=== PATIENT | male | born 1955 | race Caucasian/White ===

== ENCOUNTER 2017-12-16 11:57 | Inpatient (IN) ==
--- NOTE | 2017-12-21 16:28 | Internal Med History&Physical ---
Date of Encounter: 12/21/17 Time of Encounter: 16:28 Assessment and Plan (1) Status post total hip replacement, right Current visit: Yes Status: Acute Patient appears relaxed and states that his pain has been well managed with current medications. Surgical incision continues to remain intact with a small amount of serous type drainage received. We will continue with twice a day dressing changes until drainage has reduced. Patient to be evaluated by physical therapy with recommendations pending. Patient states that he has been out of bed and bear weight without any difficulty. (2) CHF (congestive heart failure) Current visit: Yes Status: Chronic No acute issues. Lungs are clear throughout. Patient denies any chest discomforts or palpitations. Noted dependent edema to the hips and lower extremities. We will continue with HEMANT hose to lower legs and DVT prophylaxis. We will continue with current medications Qualifiers: Heart failure type: diastolic Heart failure chronicity: chronic Qualified Code(s): I50.32 - Chronic diastolic (congestive) heart failure (3) CKD (chronic kidney disease), stage III Current visit: Yes Status: Chronic No acute issues. Last creatinine was 1.1. We will continue with current medications and follow serial labs. (4) Diabetes mellitus Current visit: Yes Status: Chronic No acute issues. We will continue with fingersticks with sliding scale coverage and evaluate these were just current medication regimen. Qualifiers: Diabetes mellitus type: type 2 Diabetes mellitus snf insulin use: with snf use Diabetes mellitus complication status: with kidney complications Diabetes mellitus complication detail: with chronic kidney disease Chronic kidney disease stage: stage 3 (moderate) Qualified Code(s): E11.22 - Type 2 diabetes mellitus with diabetic chronic kidney disease; N18.3 - Chronic kidney disease, stage 3 (moderate); Z79.4 - assisted (current) use of insulin (5) Gout Current visit: Yes Status: Chronic No acute issues at this time. Patient denies any discomforts to his bilateral feet were he states his gout flareups usually occur. Last uric acid was 7.7 on 12/15. Qualifiers: Gout site: toe Gout etiology: unspecified cause Chronicity: unspecified Laterality: right Qualified Code(s): M10.9 - Gout, unspecified (6) Atrial fibrillation Current visit: Yes Status: Chronic No acute issues. Patient's heart rate remains irregular with controlled rate less than 100. We will continue with current medications Qualifiers: Atrial fibrillation type: chronic Qualified Code(s): I48.2 - Chronic atrial fibrillation Internal Medicine - H&P: HPI Chief complaint: right THR Admitted From: Intrahospital Transfer Plans for Post Hospital Care: Home History of present illness: Mr. Pendleton is a 62 year old male who had a total hip replacement on the right after experiencing a fall at home resulting in a right femoral fracture. Patient with history of congestive heart failure, A. fib status post ablation and status post pacemaker currently on Xarelto, CKD3, diabetes, gout, hypertension, depression and BPH Patient's recovery postoperatively was complicated with an episode of elevated fever and leukocytosis. He was evaluated by infectious disease with no obvious action source found. It was thought his leukocytosis was secondary to a flareup of gout which was treated with cortical steroids. Patient did have a drop in hemoglobin and received 2 units of packed RBCs postoperatively. Patient also had increased dependent edema to his hips, which has resulted in a serous type drainage from his surgical wound, requiring twice a day dressing changes at time of discharge. Patient states that he has been up out of bed and feels that he is now progressing well. Right hip surgical wound appears intact with no erythema or ecchymosis noted. Noted moderate nonpitting edema to bilateral hips. Bilateral lower legs currently have Shelton wraps in place. Patient denies any other discomforts. Denies any shortness of breath, productive cough or palpitations. Patient states that his pain has been well-controlled with current medication regimen. Denies any fever or chills. Past Med Surg Social Fam HX - Past Medical History Medical history: atrial fibrillation, CHF, coronary artery disease, diabetes, hypertension Additional medical history: Gout, Pacemaker Psychiatric history: depression - Past Surgical History Surgical History: cataract, pacemaker/AICD, other Additional surgical history: R KNEE SCOPE, Cardiac ablation, Multiple heart caths - Social History Smoking Status: Never smoker Smokeless Tobacco Status: No Alcohol use: none Drug use: none - Family History Father Living Status: Hx Family Cardiac Disorders: Yes Hx Family Cancer: Yes Hx Family Endocrine Disorder: Yes Sister Hx Family Cardiac Disorders: Yes Mother Living Status: Hx Family Cardiac Disorders: Yes (stroke) Internal Medicine - H&P: Meds Sertraline [Zoloft] 100 mg PO DAILY 04/02/16 [History] Cinnamon Bark [Cinnamon] 1,000 mg PO BID 09/10/17 [History] Melatonin 10 mg PO HS 09/10/17 [History] Rivaroxaban [Xarelto] 20 mg PO DAILY 09/10/17 [History] Tamsulosin [Flomax] 0.4 mg PO DAILY 09/10/17 [History] Polyethylene Glycol 3350 [MiraLAX] 17 gm PO DAILY 12/09/17 [History] SitaGLIPtin [Januvia] 100 mg PO DAILY 12/09/17 [History] Aspirin [Adult Aspirin Regimen] 81 mg PO DAILY 12/10/17 [History] C/Sourcherry/Celery/Grape Seed [Tart [place]ova Capsule] 1 cap PO DAILY 12/10/17 [ History] Insulin ASPART [Novolog Flexpen] 2 unit SQ TIDWM 12/10/17 [History] Insulin Glargine,Hum.rec.anlog [Toujeo Solostar] 15 units SQ HS 12/10/17 [ History] Multivitamin [One Daily Essential] 1 tab PO DAILY 12/10/17 [History] Omeprazole/Sodium Bicarbonate [Zegerid 20 mg Capsule] 1 cap PO Q48H PRN [History] Potassium Chloride [Klor-Con 10] 10 meq PO BID 12/10/17 [History] Doxycycline Hyclate 100 mg PO BID 10 Days #20 tablet 12/16/17 [Rx] Cyclobenzaprine [Flexeril] 5 mg PO TID PRN tablet 12/21/17 [Rx] Furosemide [Lasix] 40 mg PO BID #60 tablet 12/21/17 [Rx] Metoprolol XL (24 HR) Succ [Toprol Xl] 12.5 mg PO DAILY #0 tab.er.24h 12/21/17 [ Rx] predniSONE [PredniSONE] 10 mg PO TAPER #12 tablet 12/21/17 [Rx] 3 Allergy/AdvReac Type Severity Reaction Status Date / Time tetanus toxoid, adsorbed Allergy Hives Verified 12/10/17 10:11 NSAIDS (Non-Steroidal AdvReac See Verified 12/10/17 10:38 Anti-Inflamma Comments All Systems PM: A 10-system review of systems was performed and is negative for pertinent findings except as documented above in the HPI. - Constitutional Constitutional: as per HPI, no chills, no fever(s), no night sweats - EENT Eyes: no change in vision, no discharge, no pain, no photophobia Ears: no ear discharge, no ear pain, no tinnitus Nose, mouth and throat: no dysphagia, no nasal discharge, no neck pain, no sore throat - Cardiovascular Cardiovascular ROS IM: as per HPI, no chest pain, no diaphoresis, no dyspnea, no lightheadedness, no palpitations, no syncope - Respiratory Respiratory: as per HPI, no cough, no dyspnea, no wheezing, no excessive phlegm production - Gastrointestinal Gastrointestinal: no abdominal pain, no diarrhea, no hematemesis, no hematochezia, no melena, no nausea, no vomiting - Musculoskeletal Musculoskeletal ROS IM: as per HPI, no numbness, no tingling - Integumentary Integumentary IM: no rash, no unusual bruising - Neurological Neurological ROS: no confusion, no convulsions, no focal weakness, no numbness, no tingling, no tremor(s) - Hematologic/Lymphatic Hematologic/Lymphatic: no easy bruising - Constitutional Vitals: Temp Pulse Resp BP Pulse Ox 98.7 F 73 16 131/62 100 12/21/17 14:08 12/21/17 14:08 12/21/17 14:08 12/21/17 14:08 12/21/17 14:08 General appearance: Present: A&O X 3, pleasant - Head Head exam: Present: atraumatic, normocephalic - Eye Eye exam: Present: PERRL, conjuntiva pink, sclera anicteric Pupils: Present: PERRL - Neck Neck exam general surgery: Present: supple, trachea midline. Absent: lymphadenopathy - Respiratory Respiratory exam: Present: CTAB. Absent: accessory muscle use, rales, rhonchi, wheezes - Cardiovascular Cardiovascular exam: Present: irregular rhythm, RRR, +S1, +S2. Absent: diastolic murmur, gallop, rubs, systolic murmur Additional comments: Noted irregular rhythm with controlled rate less than 100 - GI/Abdominal GI/Abdominal exam: Present: normal bowel sounds, soft, no peritoneal signs. Absent: distended, tenderness - Extremities Exam Extremities exam: Present: warm, radial pulses palpable and symmetrical. Absent : calf tenderness, cyanotic, pedal edema Additional comments: Right hip with dressing showing minimal amount of serous type drainage collected. Surgical staple incisions remain intact - Neurological Exam Neurological exam: Present: CN II-XII intact, oriented X3, no focal deficits. Absent: pronater drift, facial droop, speech deficit - Skin Skin exam: Present: dry, intact - VTE Documentation of Mechanical Device: Graduated compression elastic hosiery
[2017-12-21] MEDS ORDERED: NON-FORMULARY MEDICATION 1 EACH EACH PO PRN (18:27)
[2017-12-21] MEDS ORDERED: *HR* Dextrose 50 % in Water (Syg) 50 ML SYRINGE IVP PRN (18:32)
[2017-12-21] MEDS ORDERED: Dextrose Gel 15 GM/37.5 ML TUBE PO PRN ×2 (18:32)
[2017-12-21] MEDS ORDERED: D5% in Water 1,000 ML IVC PRN (18:32)
[2017-12-21] MEDS ORDERED: Mag Hydrox/Al Hydrox/Simeth 30 ML UDC PO PRN (18:37)
[2017-12-21] MEDS: Furosemide 40 MG TABLET PO SCH (19:25)
[2017-12-21] MEDS: Colchicine 0.6 MG TABLET PO SCH (21:40)
[2017-12-21] MEDS: Melatonin 3 MG TABLET PO SCH (21:41)
[2017-12-21] MEDS: Doxycycline 100 MG CAPSULE PO SCH (21:41)
[2017-12-21] MEDS: predniSONE 10 MG TABLET PO SCH (21:45)
[2017-12-21] MEDS: Insulin LISPRO 300 UNITS/3 ML VIAL SQ SCH (21:46)
[2017-12-21] MEDS: (Cinnamon Bark [Cinnamon] 1,000 MG) PO SCH (22:23)
[2017-12-22 07:25] LABS: Hematocrit 26.8 % (37.5-50.1); Hemoglobin 8.8 g/dL (12.9-16.9); Mean Corpuscular HGB Conc 32.8 g/dL (31.6-35.5); Mean Corpuscular Hemoglobin 29.5 pg (28.0-33.3); Mean Corpuscular Volume 89.9 fL (83.0-100.0); Mean Platelet Volume 10.2 fL (9.4-12.4); Platelet Count 158 K/mcL (140-400); Red Blood Count 2.98 M/mcL (4.19-5.50); Red Cell Distribution Width 16.5 % (11.5-14.5)
[2017-12-22 07:43] LABS: Alanine Aminotransferase 28 Units/L (7-52); Albumin 3.1 g/dL (3.5-5.7); Albumin/Globulin Ratio 1.3 (1.1-2.2); Alkaline Phosphatase 119 Units/L (34-104); Aspartate Amino Transferase 21 Units/L (13-39); BUN/Creatinine Ratio 30 (6-26); Bilirubin,Total 1.3 mg/dL (0.3-1.0); Blood Urea Nitrogen 32 mg/dL (8-23); Calcium 8.9 mg/dL (8.6-10.3); Carbon Dioxide 26 mEq/L (23-29); Chloride 100 mEq/L (98-107); Globulin 2.3 g/dL (2.4-3.5); Glucose 218 mg/dL (70-105); Magnesium 1.9 mg/dL (1.6-2.6); Osmolality,Calculated 284 (280-300); Potassium 4.4 mEq/L (3.5-5.1); Sodium 130 mEq/L (136-145); Total Protein 5.4 g/dL (6.4-8.9); eGFR For African Americans > 60 (> 60); eGFR For Non-African Americans > 60 (> 60)
[2017-12-22] MEDS: Insulin LISPRO 300 UNITS/3 ML VIAL SQ SCH ×4 (08:37→22:18)
[2017-12-22] MEDS: Doxycycline 100 MG CAPSULE PO SCH ×2 (08:38→22:18)
[2017-12-22] MEDS: Acetaminophen 325 MG TABLET PO PRN (08:39)
[2017-12-22] MEDS: Aspirin Enteric Coated 81 MG Tablet PO SCH (08:41)
[2017-12-22] MEDS: *HR* SitaGLIPtin 100 MG TABLET PO SCH (08:41)
[2017-12-22] MEDS: predniSONE 10 MG TABLET PO SCH (08:41)
[2017-12-22] MEDS: Furosemide 40 MG TABLET PO SCH ×2 (08:42→18:07)
[2017-12-22] MEDS: *HR* Rivaroxaban 10 MG TABLET PO SCH (08:42)
[2017-12-22] MEDS: (Cinnamon Bark [Cinnamon] 1,000 MG) PO SCH (08:43)
[2017-12-22] MEDS: Metoprolol XL (24 HR) Succ 25 MG TAB.ER.24H PO SCH (08:43)
[2017-12-22] MEDS: Colchicine 0.6 MG TABLET PO SCH ×2 (08:44→22:15)
[2017-12-22] MEDS: Multivit/Ca/Min/Fe/FA 1 TAB TABLET PO SCH (08:44)
[2017-12-22] MEDS ORDERED: Metoprolol XL (24 HR) Succ 25 MG TAB.ER.24H PO SCH (09:00)
[2017-12-22] MEDS ORDERED: predniSONE 10 MG TABLET PO SCH (09:00)
--- NOTE | 2017-12-22 13:01 | Internal Med Progress Note ---
Date of Encounter: 12/22/17 Time of Encounter: 12:59 - Assessment and plan (1) Status post total hip replacement, right Current Visit: Yes Status: Acute Assessment and plan: Right hip surgical site continues to have moderate amount of serous type drainage been received, requiring dressing changes twice a day. Surgical staple line remains intact with no erythema or signs of infection. Patient does have moderate amount of dependent nonpitting edema to his bilateral hips and legs. History of CHF. We will continue to mobilize patient. We will continue with HEMANT hose. Patient's pain has been fairly well managed but today after dissipating and physical therapy he did require additional medication. We will increase Flexeril to 10 mg 3 times a day and will start on tramadol 100 mg every 6 hours when necessary. Otherwise patient is progressing well with physical therapy and denies any issues (2) CHF (congestive heart failure) Current Visit: Yes Status: Chronic Assessment and plan: No acute issues. Patient does continue to have moderate amount of dependent nonpitting edema noted. We will continue with DVT prophylaxis, which will include HEMANT hose. We will continue to mobilize patient. We will continue on current home medications. Patient denies any chest discomfort or palpitations Qualifiers: Heart failure type: diastolic Heart failure chronicity: chronic Qualified Code(s): I50.32 - Chronic diastolic (congestive) heart failure (3) CKD (chronic kidney disease), stage III Current Visit: Yes Status: Chronic Assessment and plan: No acute issues. Current creatinine is 1.05. Patient does continue to have some fluid retainment, which should resolve after mobilization. (4) Diabetes mellitus Current Visit: Yes Status: Chronic Assessment and plan: No acute issues. Glucose has been well controlled with current medications. Will continue on SSI and current meds. Qualifiers: Diabetes mellitus type: type 2 Diabetes mellitus mcc insulin use: with mcc use Diabetes mellitus complication status: with kidney complications Diabetes mellitus complication detail: with chronic kidney disease Chronic kidney disease stage: stage 3 (moderate) Qualified Code(s): E11.22 - Type 2 diabetes mellitus with diabetic chronic kidney disease; N18.3 - Chronic kidney disease, stage 3 (moderate); Z79.4 - correction (current) use of insulin (5) Gout Current Visit: Yes Status: Chronic Assessment and plan: Patient continues to c/o of pain to his bilateral feet. Patient started on cochicine seen. We will continue to monitor. Qualifiers: Gout site: toe Gout etiology: unspecified cause Chronicity: unspecified Laterality: right Qualified Code(s): M10.9 - Gout, unspecified (6) Atrial fibrillation Current Visit: Yes Status: Chronic Assessment and plan: No acute issues. HR remains controlled <100. Continues on home meds. Qualifiers: Atrial fibrillation type: chronic Qualified Code(s): I48.2 - Chronic atrial fibrillation - Time Spent With Patient less than 15 minutes - Subjective Interval history: Patient appears relaxed and had complaints of moderate pain to right hip surgical site. Patient had stated his pain and been well-controlled with current medications but today after participating in physical therapy patient had requested additional medication. Patient denies any shortness of breath. Right hip surgical incision continues to have moderate amount of serous type drainage with nursing reporting that they have had to change his dressing at least twice a day. - Constitutional Vitals: Temp Pulse Resp BP Pulse Ox 97.0 F L 69 14 108/55 100 12/22/17 11:00 12/22/17 11:00 12/22/17 11:00 12/22/17 11:00 12/22/17 11:00 General appearance: Present: A&O X 3, pleasant - Head Head exam: Present: atraumatic, normocephalic - Eye Eye exam: Present: PERRL, conjuntiva pink, sclera anicteric Pupils: Present: PERRL - Neck Neck exam general surgery: Present: supple, trachea midline. Absent: lymphadenopathy - Respiratory Respiratory exam: Present: CTAB. Absent: accessory muscle use, rales, rhonchi, wheezes Additional comments: Lungs are clear throughout with diminished bases. Respiratory effort appears relaxed - Cardiovascular Cardiovascular exam: Present: irregular rhythm, RRR, +S1, +S2. Absent: diastolic murmur, gallop, rubs, systolic murmur Additional comments: Heart rate is irregular but remains less than 100 or ventricular rate - GI/Abdominal GI/Abdominal exam: Present: normal bowel sounds, soft, no peritoneal signs. Absent: distended, tenderness - Extremities Exam Extremities exam: Present: pedal edema, warm, radial pulses palpable and symmetrical. Absent: calf tenderness, cyanotic Additional comments: Patient has dependent nonpitting edema to his bilateral hips and to lower legs/ feet. Right hip surgical staple line continues to have a moderate amount of serous type drainage received, but remains intact. No erythema noted. No ecchymosis. No complaints tenderness. - Neurological Exam Neurological exam: Present: CN II-XII intact, oriented X3, no focal deficits. Absent: pronater drift, facial droop, speech deficit - Skin Skin exam: Present: dry, intact Internal Medicine: Result - Labs CBC & Chem 7: 12/22/17 07:12 12/22/17 07:12 Labs: Short CBC 12/22/17 Range/Units 07:12 WBC 12.0 H (4.3-11.1) K/mcL Hgb 8.8 L (12.9-16.9) g/dL Hct 26.8 L (37.5-50.1) % Plt Count 158 (140-400) K/mcL BMP 12/22/17 07:12 Sodium 130 L Potassium 4.4 Chloride 100 Carbon Dioxide 26 BUN 32 H Creatinine 1.05 Glucose 218 H Calcium 8.9 Liver Function 12/22/17 Range/Units 07:12 Total Bilirubin 1.3 H (0.3-1.0) mg/dL AST 21 (13-39) Units/L ALT 28 (7-52) Units/L Alkaline Phosphatase 119 H (34-104) Units/L Albumin 3.1 L (3.5-5.7) g/dL - VTE Documentation of Mechanical Device: Graduated compression elastic hosiery Consult Discharge Plan - Plan Referrals: Rosanna Pfeiffer, PAC [Physician Designer Writer] - 12/22/17 9:30 am (Following appt 12/30/2017 at 0900.) Mat Castillo MD [Partnered Physician] - 01/11/18 4:30 pm NONE,PCP [Non-Partnered Physician] -
[2017-12-22] MEDS ORDERED: Insulin LISPRO 300 UNITS/3 ML VIAL SQ SCH (18:35)
[2017-12-22] MEDS: traMADol 50 MG TABLET PO PRN (22:17)
[2017-12-22] MEDS: Melatonin 3 MG TABLET PO SCH (22:17)
[2017-12-23] MEDS: (Cinnamon Bark [Cinnamon] 1,000 MG) PO SCH ×3 (02:23→23:12)
[2017-12-23] MEDS: Aspirin Enteric Coated 81 MG Tablet PO SCH (08:12)
[2017-12-23] MEDS: predniSONE 10 MG TABLET PO SCH (08:12)
[2017-12-23] MEDS: traMADol 50 MG TABLET PO PRN ×3 (08:12→23:10)
[2017-12-23] MEDS: *HR* Rivaroxaban 10 MG TABLET PO SCH (08:13)
[2017-12-23] MEDS: Multivit/Ca/Min/Fe/FA 1 TAB TABLET PO SCH (08:13)
[2017-12-23] MEDS: Colchicine 0.6 MG TABLET PO SCH ×2 (08:13→23:11)
[2017-12-23] MEDS: *HR* SitaGLIPtin 100 MG TABLET PO SCH (08:13)
[2017-12-23] MEDS: Metoprolol XL (24 HR) Succ 25 MG TAB.ER.24H PO SCH (08:13)
[2017-12-23] MEDS: Doxycycline 100 MG CAPSULE PO SCH ×2 (08:13→23:09)
[2017-12-23] MEDS: Furosemide 40 MG TABLET PO SCH ×2 (08:14→15:34)
[2017-12-23] MEDS: Insulin LISPRO 300 UNITS/3 ML VIAL SQ SCH ×4 (08:14→21:45)
--- NOTE | 2017-12-23 10:29 | Event Note ---
Date of Encounter: 12/23/17 Time of Encounter: 10:26 Patient is currently off unit doing a follow-up with orthopedic surgeon. No events related from nursing for overnight.
[2017-12-23] MEDS ORDERED: *HR* OxyCODONE Immed Rel 5 MG TABLET PO PRN (17:57)
--- NOTE | 2017-12-23 18:05 | Internal Med Progress Note ---
Date of Encounter: 12/23/17 Time of Encounter: 18:02 - Assessment and plan (1) Status post total hip replacement, right Current Visit: Yes Status: Acute Assessment and plan: He is doing well, participating in therapies, pain is noted, above. See comments above regarding addition of oxycodone. (2) CHF (congestive heart failure) Current Visit: Yes Status: Chronic Assessment and plan: We will increase Lasix as above. Do not think that this is heart failure but could be mild symptoms. Will continue to follow. Will need to be watching renal function, as well. Qualifiers: Heart failure type: diastolic Heart failure chronicity: chronic Qualified Code(s): I50.32 - Chronic diastolic (congestive) heart failure (3) CKD (chronic kidney disease), stage III Current Visit: Yes Status: Chronic Assessment and plan: Current function is borderline and okay but will need to watch, especially with increasing diuretic. (4) Diabetes mellitus Current Visit: Yes Status: Chronic Assessment and plan: Adequately controlled. Will continue current regimen and follow on sliding scale, etc. Qualifiers: Diabetes mellitus type: type 2 Diabetes mellitus group home insulin use: with group home use Diabetes mellitus complication status: with kidney complications Diabetes mellitus complication detail: with chronic kidney disease Chronic kidney disease stage: stage 3 (moderate) Qualified Code(s): E11.22 - Type 2 diabetes mellitus with diabetic chronic kidney disease; N18.3 - Chronic kidney disease, stage 3 (moderate); Z79.4 - director of pupil personnel program (current) use of insulin (5) Gout Current Visit: Yes Status: Chronic Assessment and plan: Feet are not hurting much at all. He is still having 2-3 loose bowel movements per day, on cultures seen. Overall, this seems better. Will start allopurinol at a low dose. Qualifiers: Gout site: toe Gout etiology: unspecified cause Chronicity: unspecified Laterality: right Qualified Code(s): M10.9 - Gout, unspecified (6) Acute blood loss as cause of postoperative anemia Current Visit: No Status: Acute Assessment and plan: Tolerated, thus far. May be contributing slightly to edema. Will follow. Certainly not at a level that I would transfuse, thus far. (7) Atrial fibrillation Current Visit: Yes Status: Chronic Assessment and plan: Clinically stable. We will continue home regimen and follow. Qualifiers: Atrial fibrillation type: chronic Qualified Code(s): I48.2 - Chronic atrial fibrillation - Subjective Interval history: Patient saw orthopedics in follow-up, this morning. They were concerned about his edema. He asks about increasing his Lasix. We will comply. The patient states that his pain is not well-controlled, with occasional pain necessary that is not responsive to Ultram. I advised that he try to use the Ultram if possible. If this is not adequately controlled with Ultram, he is to use oxycodone immediate release. Oxycodone will be ordered for severe pain, only. Patient has no complaint of chest discomfort, dyspnea, orthopnea, palpitations, nausea or vomiting, constipation or diarrhea, other changes in bowel habits, difficulty with urination, rash or itching, or other new complaints, except as mentioned above. Review of systems is otherwise negative. - Constitutional Vitals: Temp Pulse Resp BP Pulse Ox 97.6 F 70 16 123/74 100 12/23/17 07:00 12/23/17 07:00 12/23/17 07:00 12/23/17 07:00 12/23/17 07:00 General appearance: Present: A&O X 3, pleasant Exam: Examination: (Except as mentioned above): General: In no apparent distress. Alert and oriented 3. Nondiaphoretic. Head: Atraumatic and normocephalic. Respiratory: No use of accessory muscles. Lungs are clear throughout. Normal airflow. Cardiovascular: Regular rate and rhythm without murmur appreciated. Abdomen: Bowel sounds are normal. No hepatosplenomegaly mass or tenderness appreciated. Obese and therefore difficult to palpate deeply. Extremities: No cyanosis clubbing, or calf tenderness. He does have grade 2-3 edema which is worse in both lower extremities. Skin: Warm and non-diaphoretic with no new lesions noted. Internal Medicine: Result - Labs CBC & Chem 7: 12/22/17 07:12 12/22/17 07:12 - VTE Documentation of Mechanical Device: Graduated compression elastic hosiery Consult Discharge Plan - Plan Referrals: Rosanna Pfeiffer PAC [Physician Division Road Supervisor] - 12/22/17 9:30 am (Following appt 12/30/2017 at 0900.) Mat Castillo MD [Partnered Physician] - 08/01/18 4:30 pm NONE,PCP [Non-Partnered Physician] -
[2017-12-23] MEDS ORDERED: *HR* OxyCODONE/APAP 5/325 TABLET PO PRN (18:16)
[2017-12-23] MEDS: Melatonin 3 MG TABLET PO SCH (23:11)
[2017-12-24] MEDS: Insulin LISPRO 300 UNITS/3 ML VIAL SQ SCH ×4 (08:41→21:22)
[2017-12-24] MEDS: Doxycycline 100 MG CAPSULE PO SCH ×2 (08:51→21:34)
[2017-12-24] MEDS: predniSONE 10 MG TABLET PO SCH (08:51)
[2017-12-24] MEDS: Aspirin Enteric Coated 81 MG Tablet PO SCH (08:51)
[2017-12-24] MEDS: Metoprolol XL (24 HR) Succ 25 MG TAB.ER.24H PO SCH (08:51)
[2017-12-24] MEDS: Furosemide 40 MG TABLET PO SCH (08:51)
[2017-12-24] MEDS: *HR* Rivaroxaban 10 MG TABLET PO SCH (08:51)
[2017-12-24] MEDS: Colchicine 0.6 MG TABLET PO SCH (08:52)
[2017-12-24] MEDS: Multivit/Ca/Min/Fe/FA 1 TAB TABLET PO SCH (08:52)
[2017-12-24] MEDS: *HR* SitaGLIPtin 100 MG TABLET PO SCH (08:52)
[2017-12-24] MEDS: traMADol 50 MG TABLET PO PRN ×3 (08:55→21:34)
[2017-12-24] MEDS: (Cinnamon Bark [Cinnamon] 1,000 MG) PO SCH ×2 (08:57→21:55)
[2017-12-24 14:16] LABS: Hematocrit 28.3 % (37.5-50.1); Hemoglobin 9.3 g/dL (12.9-16.9); Mean Corpuscular HGB Conc 32.9 g/dL (31.6-35.5); Mean Corpuscular Hemoglobin 29.8 pg (28.0-33.3); Mean Corpuscular Volume 90.7 fL (83.0-100.0); Mean Platelet Volume 9.4 fL (9.4-12.4); Platelet Count 165 K/mcL (140-400); Red Blood Count 3.12 M/mcL (4.19-5.50); Red Cell Distribution Width 16.7 % (11.5-14.5)
[2017-12-24 14:33] LABS: BUN/Creatinine Ratio 24 (6-26); Blood Urea Nitrogen 26 mg/dL (8-23); Carbon Dioxide 28 mEq/L (23-29); Chloride 97 mEq/L (98-107); Glucose 187 mg/dL (70-105); Osmolality,Calculated 284 (280-300); Potassium 4.4 mEq/L (3.5-5.1); Sodium 132 mEq/L (136-145); eGFR For African Americans > 60 (> 60); eGFR For Non-African Americans > 60 (> 60)
--- NOTE | 2017-12-24 16:07 | Internal Med Progress Note ---
Date of Encounter: 12/24/17 Time of Encounter: 16:04 - Assessment and plan (1) Femoral neck fracture Current Visit: No Status: Acute Assessment and plan: Patient is status post total hip replacement on the right. He is doing well, continues to participate in therapy Qualifiers: Encounter type: subsequent encounter Fracture type: closed Laterality: right Fracture healing: with routine healing Qualified Code(s): S72.001D - Fracture of unspecified part of neck of right femur, subsequent encounter for closed fracture with routine healing (2) CHF (congestive heart failure) Current Visit: Yes Status: Chronic Assessment and plan: Patient appears to have chronic congestive heart failure, and appears to be mildly exacerbated given that he stopped his Lasix. He received 40 mg of Lasix yesterday, which have improved his sodium from 130 to 132. His BUN/creatinine continues to be stable. He is to receive Lasix 80 mg today. He was noted to have +2 pitting edema bilateral lower extremity Patient is chronically on torsemide 60 mg twice a day according to him, but I was not able to find this medication on his list. Qualifiers: Heart failure type: diastolic Heart failure chronicity: chronic Qualified Code(s): I50.32 - Chronic diastolic (congestive) heart failure (3) CKD (chronic kidney disease), stage III Current Visit: Yes Status: Chronic Assessment and plan: Chronic head stage III, may have had a touch of acute decline in the BUN but Currently appears to be urinating well. We will continue with the Lasix and monitor tomorrow Anticipated that this will be okay, given that the patient appears to be fluid overloaded at this time (4) Diabetes mellitus Current Visit: Yes Status: Chronic Assessment and plan: Adequately controlled, continue with the current management and follow on a sliding scale Qualifiers: Diabetes mellitus type: type 2 Diabetes mellitus senior living insulin use: with regional clinical director use Diabetes mellitus complication status: with kidney complications Diabetes mellitus complication detail: with chronic kidney disease Chronic kidney disease stage: stage 3 (moderate) Qualified Code(s): E11.22 - Type 2 diabetes mellitus with diabetic chronic kidney disease; N18.3 - Chronic kidney disease, stage 3 (moderate); Z79.4 - vascular tech (current) use of insulin (5) Leukocytosis Current Visit: No Status: Acute Assessment and plan: On repeat today, patient appears to be elevated at 15 -Patient is afebrile, and hemodynamically stable; no sign of infections -Patient was started on prednisone yesterday, and may be suffering from a reactive leukocytosis as well as in the setting of acute arthritic flare up -We will monitor another CBC, by tomorrow Qualifiers: Leukocytosis type: leukemoid reaction Qualified Code(s): D72.823 - Leukemoid reaction (6) Gout Current Visit: Yes Status: Chronic Assessment and plan: -Patient currently on a 10 mg prednisone 3 days; he will be switched to 5 mg prednisone for 5 days -Patient was started on colchicine yesterday, but given that he is controlled we will hold colchicine given his kidney function -Patient may possibly start on allopurinol in the next couple of days Qualifiers: Gout site: toe Gout etiology: unspecified cause Chronicity: unspecified Laterality: right Qualified Code(s): M10.9 - Gout, unspecified - Time Spent With Patient 25 - 35 minutes - Subjective Interval history: Patient reporting that he has left lower extremity gout attack. Has improved since yesterday. Patient reported that he used to be on 60 mg torsemide in the past, and he was told to stop this medication prior to his hip surgery - Constitutional Vitals: Temp Pulse Resp BP Pulse Ox 98.0 F 87 16 133/64 98 12/24/17 07:49 12/24/17 07:49 12/23/17 21:00 12/24/17 07:49 12/24/17 07:49 General appearance: Present: A&O X 3, pleasant - Head Head exam: Present: atraumatic, normocephalic - Eye Eye exam: Present: PERRL, conjuntiva pink, sclera anicteric Pupils: Present: PERRL - Neck Neck exam general surgery: Present: supple, trachea midline. Absent: lymphadenopathy - Respiratory Respiratory exam: Present: CTAB. Absent: accessory muscle use, rales, rhonchi, wheezes - Cardiovascular Cardiovascular exam: Present: +S1, +S2, systolic murmur. Absent: diastolic murmur, gallop, rubs - GI/Abdominal GI/Abdominal exam: Present: normal bowel sounds, soft, no peritoneal signs. Absent: distended, tenderness - Extremities Exam Extremities exam: Present: joint swelling, pedal edema, warm, radial pulses palpable and symmetrical. Absent: calf tenderness, cyanotic Additional comments: Left lateral MTP joint redness/erythema as well as tenderness to the touch consistent with gout flare - Neurological Exam Neurological exam: Present: CN II-XII intact, oriented X3, no focal deficits. Absent: pronater drift, facial droop, speech deficit - Skin Skin exam: Present: dry, intact Internal Medicine: Result - Labs CBC & Chem 7: 12/24/17 14:05 12/24/17 14:05 Labs: Short CBC 12/24/17 Range/Units 14:05 WBC 15.7 H (4.3-11.1) K/mcL Hgb 9.3 L (12.9-16.9) g/dL Hct 28.3 L (37.5-50.1) % Plt Count 165 (140-400) K/mcL BMP 12/24/17 14:05 Sodium 132 L Potassium 4.4 Chloride 97 L Carbon Dioxide 28 BUN 26 H Creatinine 1.10 Glucose 187 H Calcium 9.0 - VTE Documentation of Mechanical Device: Graduated compression elastic hosiery Consult Discharge Plan - Plan Referrals: Rosanna Pfeiffer, PAC [Physician Mapping Analyst] - 12/22/17 9:30 am (Following appt 12/30/2017 at 0900.) Mat Castillo MD [Partnered Physician] - 01/11/18 4:30 pm NONE,PCP [Non-Partnered Physician] -
[2017-12-24] MEDS: Melatonin 3 MG TABLET PO SCH (21:34)
[2017-12-25 05:25] LABS: Hematocrit 27.2 % (37.5-50.1); Hemoglobin 8.8 g/dL (12.9-16.9); Mean Corpuscular HGB Conc 32.4 g/dL (31.6-35.5); Mean Corpuscular Hemoglobin 29.5 pg (28.0-33.3); Mean Corpuscular Volume 91.3 fL (83.0-100.0); Mean Platelet Volume 9.8 fL (9.4-12.4); Platelet Count 164 K/mcL (140-400); Red Blood Count 2.98 M/mcL (4.19-5.50); Red Cell Distribution Width 16.9 % (11.5-14.5)
[2017-12-25 05:46] LABS: BUN/Creatinine Ratio 23 (6-26); Blood Urea Nitrogen 25 mg/dL (8-23); Calcium 8.9 mg/dL (8.6-10.3); Carbon Dioxide 29 mEq/L (23-29); Chloride 99 mEq/L (98-107); Glucose 123 mg/dL (70-105); Osmolality,Calculated 286 (280-300); Potassium 3.8 mEq/L (3.5-5.1); Sodium 135 mEq/L (136-145); eGFR For African Americans > 60 (> 60); eGFR For Non-African Americans > 60 (> 60)
[2017-12-25] MEDS: Insulin LISPRO 300 UNITS/3 ML VIAL SQ SCH ×4 (08:03→20:39)
[2017-12-25] MEDS: Doxycycline 100 MG CAPSULE PO SCH ×2 (08:09→20:36)
[2017-12-25] MEDS: *HR* Rivaroxaban 10 MG TABLET PO SCH (08:09)
[2017-12-25] MEDS: Multivit/Ca/Min/Fe/FA 1 TAB TABLET PO SCH (08:09)
[2017-12-25] MEDS: Aspirin Enteric Coated 81 MG Tablet PO SCH (08:09)
[2017-12-25] MEDS: *HR* SitaGLIPtin 100 MG TABLET PO SCH (08:10)
[2017-12-25] MEDS: Furosemide 40 MG TABLET PO SCH (08:10)
[2017-12-25] MEDS: (Cinnamon Bark [Cinnamon] 1,000 MG) PO SCH ×2 (08:10→20:40)
[2017-12-25] MEDS: predniSONE 10 MG TABLET PO SCH (08:10)
[2017-12-25] MEDS: Metoprolol XL (24 HR) Succ 25 MG TAB.ER.24H PO SCH (08:12)
--- NOTE | 2017-12-25 15:50 | Internal Med Progress Note ---
Date of Encounter: 12/25/17 Time of Encounter: 15:48 - Assessment and plan (1) Femoral neck fracture Current Visit: No Status: Acute Assessment and plan: Patient is status post total hip replacement on the right. He is doing well, continues to participate in therapy Qualifiers: Encounter type: subsequent encounter Fracture type: closed Laterality: right Fracture healing: with routine healing Qualified Code(s): S72.001D - Fracture of unspecified part of neck of right femur, subsequent encounter for closed fracture with routine healing (2) CHF (congestive heart failure) Current Visit: Yes Status: Chronic Assessment and plan: Patient does not appear to be in acute CHF, but has fluid overload due to stopping his Lasix preop. -Hyponatremia improved, continue Lasix at 80 mg -BNP was not suggestive of exacerbation -Bilateral lower pitting edema somewhat improved, but continued 2+ -Continue to monitor blood work Qualifiers: Heart failure type: diastolic Heart failure chronicity: chronic Qualified Code(s): I50.32 - Chronic diastolic (congestive) heart failure (3) CKD (chronic kidney disease), stage III Current Visit: Yes Status: Chronic Assessment and plan: Chronic head stage III, may have had a touch of acute decline in the BUN but Currently appears to be urinating well. We will continue with the Lasix and monitor (4) Diabetes mellitus Current Visit: Yes Status: Chronic Assessment and plan: Adequately controlled, continue with the current management and follow on a sliding scale Qualifiers: Diabetes mellitus type: type 2 Diabetes mellitus long term care administrator insulin use: with long-term use Diabetes mellitus complication status: with kidney complications Diabetes mellitus complication detail: with chronic kidney disease Chronic kidney disease stage: stage 3 (moderate) Qualified Code(s): E11.22 - Type 2 diabetes mellitus with diabetic chronic kidney disease; N18.3 - Chronic kidney disease, stage 3 (moderate); Z79.4 - terminal operations manager (current) use of insulin (5) Leukocytosis Current Visit: No Status: Acute Assessment and plan: Repeated today, white blood count improved from 15-11 -Patient is afebrile, and hemodynamically stable; no sign of infections -Patient was started on prednisone 12/23/2017, and may be suffering from a reactive leukocytosis as well as in the setting of acute arthritic flare up -Continue to monitor Qualifiers: Leukocytosis type: leukemoid reaction Qualified Code(s): D72.823 - Leukemoid reaction (6) Gout Current Visit: Yes Status: Chronic Assessment and plan: -Patient currently on a 10 mg prednisone 3 days; he will be switched to 5 mg prednisone for 5 days -Holding colchicine due to kidney function, patient should be covered with prednisone at this time -Patient may possibly start on allopurinol in the next couple of days Qualifiers: Gout site: toe Gout etiology: unspecified cause Chronicity: unspecified Laterality: right Qualified Code(s): M10.9 - Gout, unspecified (7) Hyponatremia Current Visit: Yes Status: Acute Assessment and plan: Improved, most likely hypervolemic hyponatremia -Continue to monitor, and continue Lasix - Time Spent With Patient 25 - 35 minutes - Subjective Interval history: Patient reporting that he has left lower extremity gout attack. Continue to improve, but has localized tenderness still No issues today, reports intact appetite, having regular bowel movements. Patient denied any CP/SOB. Denied any GI or symptoms. - Constitutional Vitals: Temp Pulse Resp BP Pulse Ox 97.4 F L 64 16 100/57 98 12/25/17 07:37 12/25/17 07:37 12/25/17 07:37 12/25/17 07:37 12/25/17 07:37 General appearance: Present: A&O X 3, pleasant - Eye Eye exam: Present: PERRL, conjuntiva pink, sclera anicteric Pupils: Present: PERRL - Neck Neck exam general surgery: Present: supple, trachea midline. Absent: lymphadenopathy - Respiratory Respiratory exam: Present: CTAB. Absent: accessory muscle use, rales, rhonchi, wheezes - Cardiovascular Cardiovascular exam: Present: RRR, +S1, +S2. Absent: diastolic murmur, gallop, rubs, systolic murmur - Extremities Exam Extremities exam: Present: pedal edema, warm, radial pulses palpable and symmetrical. Absent: calf tenderness, cyanotic Additional comments: Has +2 pitting edema bilateral lower extremity, below the knee Internal Medicine: Result - Labs CBC & Chem 7: 12/25/17 05:20 12/25/17 05:20 Labs: Short CBC 12/25/17 Range/Units 05:20 WBC 11.4 H (4.3-11.1) K/mcL Hgb 8.8 L (12.9-16.9) g/dL Hct 27.2 L (37.5-50.1) % Plt Count 164 (140-400) K/mcL BMP 12/25/17 05:20 Sodium 135 L Potassium 3.8 Chloride 99 Carbon Dioxide 29 BUN 25 H Creatinine 1.08 Glucose 123 H Calcium 8.9 - VTE Documentation of Mechanical Device: Graduated compression elastic hosiery Consult Discharge Plan - Plan Referrals: Rosanna Pfeiffer, PAC [Physician Tire Setter] - 12/22/17 9:30 am (Following appt 12/30/2017 at 0900.) Mat Castillo MD [Partnered Physician] - 01/11/18 4:30 pm NONE,PCP [Non-Partnered Physician] -
[2017-12-25] MEDS: traMADol 50 MG TABLET PO PRN ×2 (16:33→20:37)
[2017-12-25] MEDS: Melatonin 3 MG TABLET PO SCH (20:37)
[2017-12-26] MEDS: traMADol 50 MG TABLET PO PRN ×3 (05:51→21:07)
[2017-12-26] MEDS: Multivit/Ca/Min/Fe/FA 1 TAB TABLET PO SCH (05:51)
[2017-12-26 06:57] LABS: BUN/Creatinine Ratio 23 (6-26); Blood Urea Nitrogen 23 mg/dL (8-23); Calcium 8.7 mg/dL (8.6-10.3); Carbon Dioxide 30 mEq/L (23-29); Chloride 99 mEq/L (98-107); Glucose 133 mg/dL (70-105); Osmolality,Calculated 282 (280-300); Potassium 3.6 mEq/L (3.5-5.1); Sodium 133 mEq/L (136-145); eGFR For African Americans > 60 (> 60); eGFR For Non-African Americans > 60 (> 60)
[2017-12-26 07:52] LABS: Hematocrit 28.2 % (37.5-50.1); Hemoglobin 9.1 g/dL (12.9-16.9); Mean Corpuscular HGB Conc 32.3 g/dL (31.6-35.5); Mean Corpuscular Hemoglobin 29.8 pg (28.0-33.3); Mean Corpuscular Volume 92.5 fL (83.0-100.0); Mean Platelet Volume 10.4 fL (9.4-12.4); Platelet Count 160 K/mcL (140-400); Red Blood Count 3.05 M/mcL (4.19-5.50); Red Cell Distribution Width 17.2 % (11.5-14.5)
[2017-12-26] MEDS: Aspirin Enteric Coated 81 MG Tablet PO SCH (08:34)
[2017-12-26] MEDS: Metoprolol XL (24 HR) Succ 25 MG TAB.ER.24H PO SCH (08:34)
[2017-12-26] MEDS: *HR* Rivaroxaban 10 MG TABLET PO SCH (08:34)
[2017-12-26] MEDS: predniSONE 10 MG TABLET PO SCH (08:35)
[2017-12-26] MEDS: Doxycycline 100 MG CAPSULE PO SCH ×2 (08:35→21:07)
[2017-12-26] MEDS: Acetaminophen 325 MG TABLET PO PRN (08:35)
[2017-12-26] MEDS: Furosemide 40 MG TABLET PO SCH ×2 (08:35→16:32)
[2017-12-26] MEDS: *HR* SitaGLIPtin 100 MG TABLET PO SCH (08:35)
[2017-12-26] MEDS: (Cinnamon Bark [Cinnamon] 1,000 MG) PO SCH (08:36)
[2017-12-26] MEDS: Insulin LISPRO 300 UNITS/3 ML VIAL SQ SCH ×4 (08:36→21:08)
[2017-12-26] MEDS: Melatonin 3 MG TABLET PO SCH (21:07)
[2017-12-27] MEDS: traMADol 50 MG TABLET PO PRN ×4 (05:30→21:23)
[2017-12-27] MEDS: Multivit/Ca/Min/Fe/FA 1 TAB TABLET PO SCH (05:31)
[2017-12-27] MEDS: Doxycycline 100 MG CAPSULE PO SCH ×2 (07:40→21:23)
[2017-12-27] MEDS: Aspirin Enteric Coated 81 MG Tablet PO SCH (07:40)
[2017-12-27] MEDS: *HR* SitaGLIPtin 100 MG TABLET PO SCH (07:40)
[2017-12-27] MEDS: Metoprolol XL (24 HR) Succ 25 MG TAB.ER.24H PO SCH (07:40)
[2017-12-27] MEDS: Furosemide 40 MG TABLET PO SCH ×2 (07:40→17:06)
[2017-12-27] MEDS: *HR* Rivaroxaban 10 MG TABLET PO SCH (07:40)
[2017-12-27] MEDS: Acetaminophen 325 MG TABLET PO PRN (07:41)
[2017-12-27] MEDS: predniSONE 10 MG TABLET PO SCH (07:41)
[2017-12-27] MEDS: Insulin LISPRO 300 UNITS/3 ML VIAL SQ SCH ×4 (07:42→21:23)
--- NOTE | 2017-12-27 11:00 | Internal Med Progress Note ---
Date of Encounter: 12/31/17 Time of Encounter: 12:00 - Assessment and plan (1) Status post total hip replacement, right Status: Acute Assessment and plan: He is doing well, participating in therapies, pain is noted, above. See comments above regarding addition of oxycodone. The patient requires a standard wheelchair to successfully complete activities of daily living including: Toileting, feeding, bathing, dressing, and grooming. This includes daily tasks in the home. A standard wheelchair is necessary due to the patient's impaired ambulation and mobility restrictions as they would be unable to resolve these daily living tasks using a cane or walker. The patient is capable of using a standard wheelchair safely in the home and can maneuver within the home without problems; they have adequate access. There is a caregiver available to provide assistance. The patient has not expressed an unwillingness to use the wheelchair. (2) CKD (chronic kidney disease), stage III Status: Chronic Assessment and plan: Current function is borderline and okay but will continue to watch, especially with increasing diuretic. We will increase his Lasix, after discussion with him. This will need to be followed carefully to make sure that we do not give him prerenal azotemia. (3) Diabetes mellitus Status: Chronic Assessment and plan: Adequately controlled. Will continue current regimen and follow on sliding scale, etc. Qualifiers: Diabetes mellitus type: type 2 Diabetes mellitus rat exterminator insulin use: with rat exterminator use Diabetes mellitus complication status: with kidney complications Diabetes mellitus complication detail: with chronic kidney disease Chronic kidney disease stage: stage 3 (moderate) Qualified Code(s): E11.22 - Type 2 diabetes mellitus with diabetic chronic kidney disease; N18.3 - Chronic kidney disease, stage 3 (moderate); Z79.4 - termite treater (current) use of insulin (4) Gout Status: Chronic Assessment and plan: This is remarkably better. We will continue to follow. Will need low-dose allopurinol. Qualifiers: Gout site: toe Gout etiology: unspecified cause Chronicity: unspecified Laterality: right Qualified Code(s): M10.9 - Gout, unspecified (5) Acute blood loss as cause of postoperative anemia Status: Acute Assessment and plan: Tolerated, thus far. May be contributing slightly to edema. Will follow. Certainly not at a level that I would transfuse, thus far. (6) Atrial fibrillation Status: Chronic Assessment and plan: Clinically stable. We will continue home regimen and follow. Qualifiers: Atrial fibrillation type: chronic Qualified Code(s): I48.2 - Chronic atrial fibrillation - Subjective Interval history: The patient was evaluated by me yesterday but the note was not completed. This documentation is being completed today for that reason. Patient states that his edema is still worse. He was receiving 40 mg of Lasix twice a day. This was not obvious on his dosing and I simply changed to 80 mg once daily for the weekend. We agreed that we would increase him to 80 mg twice a day and follow his creatinine and clinical picture for the next couple of days. Patient has no complaint of chest discomfort, dyspnea, orthopnea, palpitations, nausea or vomiting, constipation or diarrhea, other changes in bowel habits, difficulty with urination, rash or itching, or other new complaints, except as mentioned above. Review of systems is otherwise negative. - Constitutional Vitals: Temp Pulse Resp BP Pulse Ox General appearance: Present: pleasant Exam: Examination: (Except as mentioned above): General: In no apparent distress. Alert and oriented 3. Nondiaphoretic. Head: Atraumatic and normocephalic. Respiratory: No use of accessory muscles. Lungs are clear throughout. Normal airflow. Cardiovascular: Regular rate and rhythm without murmur appreciated. Abdomen: Bowel sounds are normal. No hepatosplenomegaly mass or tenderness appreciated. Obese and therefore difficult to palpate deeply. Extremities: No cyanosis clubbing but does have 3-4+ edema, worse than Tuesday. Skin: Warm and non-diaphoretic with no new lesions noted. Internal Medicine: Result - Labs CBC & Chem 7: 12/26/17 06:35 12/28/17 06:53 - VTE Documentation of Mechanical Device: Graduated compression elastic hosiery Consult Discharge Plan - Plan Additional Instructions: Discharge Instructions: Total Hip Replacement Please call [facility] ([phone]), your Primary Care Physician, or report to the Emergency Room if you have any of the following symptoms: Nausea, vomiting, fever greater that 101.5, swelling, chest pain, shortness of breath, increased pain/redness/drainage/odor for your incision site, numbness/ tingling, or any other concerning symptoms. ACTIVITY:Weight-bearing as tolerated for 8 weeks with hip dislocation precautions that physical therapy taught you. You may progress as tolerated under the guidance of your physical therapist. You do not need to sleep with a pillow between your legs. You can also seep on the operative side or on your stomach. MEDICATIONS: Upon discharge resume your home medications. Take all the medications as prescribed. Take a stool softener if taking narcotic pain medications. Stool softeners are only effective if you drink enough fluids. Drink 6-8 glass of water or fluids a day, unless this is not allowed for another health problem. Despite using stool softeners, if you haven't had a bowel movement in 3 days, please switch to a gentle laxative. Gentle laxatives are sold over the counter. You should have a bowel movement within 24 hours, if not call the office. You will be discharged from the hospital with a prescription for pain medication. You are encouraged to decrease the use of narcotic pain medication as tolerated. Should you require a refill, please call the office. [facility] prescribes narcotic pain medication for only 4-6 weeks after surgery. If you require pain medication beyond this time period, you may be referred to your Primary Care Physician or to the Pain Clinic for further evaluation. Plan ahead for refills on pain medication as many narcotics either need to be picked up at the office or mailed. It is best to call 48-72 hours in advance of needing a prescription refill so you don't run out of medication. To help control the post-operative pain, you may take NSAIDs (Aleve,Advil, Motrin, ibuprofen, naprosyn) or Tylenol as prescribed on the bottle in addition to the pain medication. ANTICOAGULATION (blood thinners): Continue your Aspirin, Lovenox or Coumadin as prescribed to help prevent a blood clot in the leg or in the lungs. As long as your incision remains dry and you tolerate the NSAIDs (Aleve, Advil, Motrin, Ibuprofen, Naprosyn), it is OK to use the NSAIDS while you are taking your anticoagulation medication. Should your incision start to drain, stop the NSAID and contact our office. Common symptoms of blood clot in the legs include: localized pain, swelling, calf tenderness, redness or discoloration of the skin. Blood clot in the lung symptoms include: shortness of breath, rapid pulse, sweating, and chest pain that worsens with deep breathing, coughing up blood, lightheadedness, feelings of anxiety. If you experience any of these symptoms notify your physician immediately, go to the emergency room, or if having trouble breathing, call 911. WOUND CARE: Leave the dressing on for 7 to 10days. You may change the dressing if it is saturated greater than 50%. Do not get the dressing wet at anytime. Wash your hands with antibacterial soap, rinse and dry prior to any wound care. If you have jhonny the visiting nurse or rehab facility can remove the stapes 10-14 days after surgery and place steri-strips across the wound. Leave the steri-strips in place until they fall off on their own. You may let water from the shower run on top of the steri-strips. If you do not have a visiting nurse or rehab facility, you will need to return to the office at 10-14 days for the jhonny to be removed. If you have itching or redness around the dressing call the office. FOLLOW-UP: Please follow up with your surgeon in the orthopedic clinic in 6 weeks from the day of surgery. If you have jhonny that need to be removed, you will need to come back to the office in 10-14 days from the day of surgery. Referrals: Rosanna Pfeiffer PAC [Physician Automotive Drivability Technician] - 12/22/17 9:30 am (Following appt 12/30/2017 at 0900.) Mat Castillo MD [Partnered Physician] - 01/11/18 4:30 pm NONE,PCP [Non-Partnered Physician] - Sofya Hairston CNP [Primary Care Provider] - 01/05/18 11:30 am
--- NOTE | 2017-12-27 13:18 | Internal Med Progress Note ---
Date of Encounter: 12/27/17 Time of Encounter: 13:16 - Assessment and plan (1) Femoral neck fracture Current Visit: Yes Status: Acute Assessment and plan: pain controlled with tramadol and flexeral. continue PT/OT. will follow progress. follow up with ortho as scheduled. continue doxycycline for increased drainage. will monitor. Qualifiers: Encounter type: subsequent encounter Fracture type: closed Laterality: right Fracture healing: with routine healing Qualified Code(s): S72.001D - Fracture of unspecified part of neck of right femur, subsequent encounter for closed fracture with routine healing (2) CHF (congestive heart failure) Current Visit: Yes Status: Chronic Assessment and plan: continue lasix. improving. will monitor labs and for decompensation. Qualifiers: Heart failure type: diastolic Heart failure chronicity: chronic Qualified Code(s): I50.32 - Chronic diastolic (congestive) heart failure (3) Diabetes mellitus Current Visit: Yes Status: Chronic Assessment and plan: continue to monitor FSBS and current meds. will adjust as necessary. Qualifiers: Diabetes mellitus type: type 2 Diabetes mellitus fdc insulin use: with buttermaker helper use Diabetes mellitus complication status: with kidney complications Diabetes mellitus complication detail: with chronic kidney disease Chronic kidney disease stage: stage 3 (moderate) Qualified Code(s): E11.22 - Type 2 diabetes mellitus with diabetic chronic kidney disease; N18.3 - Chronic kidney disease, stage 3 (moderate); Z79.4 - superintendent container terminal (current) use of insulin - Time Spent With Patient less than 15 minutes - Constitutional Vitals: Temp Pulse Resp BP Pulse Ox 97.5 F L 74 17 124/71 93 12/27/17 07:32 12/27/17 07:32 12/26/17 18:47 12/27/17 07:32 12/27/17 07:32 General appearance: Present: cooperative, A&O X 3, pleasant, no acute distress, answers questions appropriately - Head Head exam: Present: atraumatic, normocephalic - Eye Eye exam: Present: PERRL, conjuntiva pink, sclera anicteric Pupils: Present: PERRL - Neck Neck exam general surgery: Present: supple, trachea midline. Absent: lymphadenopathy - Respiratory Respiratory exam: Present: CTAB. Absent: accessory muscle use, rales, rhonchi, wheezes - Cardiovascular Cardiovascular exam: Present: RRR, +S1, +S2. Absent: diastolic murmur, gallop, rubs, systolic murmur - GI/Abdominal GI/Abdominal exam: Present: normal bowel sounds, soft, no peritoneal signs. Absent: distended, tenderness - Extremities Exam Extremities exam: Present: pedal edema, warm, radial pulses palpable and symmetrical. Absent: calf tenderness, cyanotic - Incison Comments: right hip incision serousanguinous drainage with surrounding edema. - Neurological Exam Neurological exam: Present: CN II-XII intact, oriented X3, no focal deficits. Absent: pronater drift, facial droop, speech deficit - Skin Skin exam: Present: dry, intact Internal Medicine: Result - Labs CBC & Chem 7: 12/26/17 06:35 12/26/17 06:35 - VTE Documentation of Mechanical Device: Graduated compression elastic hosiery Consult Discharge Plan - Plan Referrals: Rosanna Pfeiffer, PAC [Physician Infant Childcare Provider] - 12/22/17 9:30 am (Following appt 12/30/2017 at 0900.) Mat Castillo MD [Partnered Physician] - 01/11/18 4:30 pm NONE,PCP [Non-Partnered Physician] -
[2017-12-27] MEDS: Melatonin 3 MG TABLET PO SCH (21:23)
[2017-12-28] MEDS: traMADol 50 MG TABLET PO PRN ×3 (05:26→22:03)
[2017-12-28] MEDS: Multivit/Ca/Min/Fe/FA 1 TAB TABLET PO SCH (05:26)
[2017-12-28 07:31] LABS: BUN/Creatinine Ratio 21 (6-26); Blood Urea Nitrogen 20 mg/dL (8-23); Calcium 8.6 mg/dL (8.6-10.3); Carbon Dioxide 31 mEq/L (23-29); Chloride 98 mEq/L (98-107); Glucose 111 mg/dL (70-105); Osmolality,Calculated 283 (280-300); Potassium 3.5 mEq/L (3.5-5.1); Sodium 135 mEq/L (136-145); eGFR For African Americans > 60 (> 60); eGFR For Non-African Americans > 60 (> 60)
[2017-12-28] MEDS: Insulin LISPRO 300 UNITS/3 ML VIAL SQ SCH ×4 (07:42→22:05)
[2017-12-28] MEDS: *HR* Rivaroxaban 10 MG TABLET PO SCH (08:36)
[2017-12-28] MEDS: Doxycycline 100 MG CAPSULE PO SCH ×2 (08:36→21:26)
[2017-12-28] MEDS: *HR* SitaGLIPtin 100 MG TABLET PO SCH (08:37)
[2017-12-28] MEDS: predniSONE 10 MG TABLET PO SCH (08:37)
[2017-12-28] MEDS: Furosemide 40 MG TABLET PO SCH (08:37)
[2017-12-28] MEDS: Aspirin Enteric Coated 81 MG Tablet PO SCH (08:37)
[2017-12-28] MEDS: Metoprolol XL (24 HR) Succ 25 MG TAB.ER.24H PO SCH (08:39)
[2017-12-28] MEDS: Acetaminophen 325 MG TABLET PO PRN (10:26)
--- NOTE | 2017-12-28 11:04 | Internal Med Progress Note ---
Date of Encounter: 12/28/17 Time of Encounter: 11:01 - Assessment and plan (1) Femoral neck fracture Current Visit: Yes Status: Acute Assessment and plan: pain controlled with tramadol and flexeral. continue PT/OT. will follow progress. follow up with ortho as scheduled. continue doxycycline for increased drainage. will monitor. Qualifiers: Encounter type: subsequent encounter Fracture type: closed Laterality: right Fracture healing: with routine healing Qualified Code(s): S72.001D - Fracture of unspecified part of neck of right femur, subsequent encounter for closed fracture with routine healing (2) CHF (congestive heart failure) Current Visit: Yes Status: Chronic Assessment and plan: continue lasix. improving. will monitor labs and for decompensation. Qualifiers: Heart failure type: diastolic Heart failure chronicity: chronic Qualified Code(s): I50.32 - Chronic diastolic (congestive) heart failure (3) Diabetes mellitus Current Visit: Yes Status: Chronic Assessment and plan: continue to monitor FSBS and current meds. will adjust as necessary. 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 taking tramadol for pain. continues to have BLE edema, denies SOB, chest pain, fever, chills, NVD. states last BM was 3 days ago. discussed taking miralax BID and adding colace. no change in appetite, maintaining hydration. - Constitutional Vitals: Temp Pulse Resp BP Pulse Ox 98.5 F 62 15 119/69 98 12/28/17 07:30 12/28/17 07:30 12/28/17 07:30 12/28/17 07:30 12/28/17 07:30 General appearance: Present: cooperative, A&O X 3, pleasant, no acute distress, answers questions appropriately - Head Head exam: Present: atraumatic, normocephalic - Eye Eye exam: Present: PERRL, conjuntiva pink, sclera anicteric Pupils: Present: PERRL - Neck Neck exam general surgery: Present: supple, trachea midline. Absent: lymphadenopathy - Respiratory Respiratory exam: Present: CTAB. Absent: accessory muscle use, rales, rhonchi, wheezes - Cardiovascular Cardiovascular exam: Present: RRR, +S1, +S2. Absent: diastolic murmur, gallop, rubs, systolic murmur - GI/Abdominal GI/Abdominal exam: Present: normal bowel sounds, soft, no peritoneal signs. Absent: distended, tenderness - Extremities Exam Extremities exam: Present: warm, radial pulses palpable and symmetrical. Absent : calf tenderness, cyanotic, pedal edema Additional comments: BLE edema nonpitting. - Incison Comments: right hip incision continues to have large amt of serousanguinous drainage. - Neurological Exam Neurological exam: Present: CN II-XII intact, oriented X3, no focal deficits. Absent: pronater drift, facial droop, speech deficit - Skin Skin exam: Present: dry, intact Internal Medicine: Result - Labs CBC & Chem 7: 12/26/17 06:35 12/28/17 06:53 Labs: BMP 12/28/17 06:53 Sodium 135 L Potassium 3.5 Chloride 98 Carbon Dioxide 31 H BUN 20 Creatinine 0.96 Glucose 111 H Calcium 8.6 - VTE Documentation of Mechanical Device: Graduated compression elastic hosiery Consult Discharge Plan - Plan Referrals: Rosanna Pfeiffer, PAC [Physician Webbing Weaver] - 12/22/17 9:30 am (Following appt 12/30/2017 at 0900.) Mat Castillo MD [Partnered Physician] - 01/11/18 4:30 pm NONE,PCP [Non-Partnered Physician] -
[2017-12-28] MEDS: Torsemide 20 MG TABLET PO SCH (16:59)
[2017-12-28] MEDS: Melatonin 3 MG TABLET PO SCH (21:27)
[2017-12-29] MEDS: traMADol 50 MG TABLET PO PRN (05:31)
[2017-12-29] MEDS: Multivit/Ca/Min/Fe/FA 1 TAB TABLET PO SCH (05:31)
[2017-12-29] MEDS: Insulin LISPRO 300 UNITS/3 ML VIAL SQ SCH (08:04)
[2017-12-29] MEDS: Metoprolol XL (24 HR) Succ 25 MG TAB.ER.24H PO SCH (08:07)
[2017-12-29] MEDS: Torsemide 20 MG TABLET PO SCH (08:07)
[2017-12-29] MEDS: *HR* Rivaroxaban 10 MG TABLET PO SCH (08:08)
[2017-12-29] MEDS: *HR* SitaGLIPtin 100 MG TABLET PO SCH (08:08)
[2017-12-29] MEDS: Aspirin Enteric Coated 81 MG Tablet PO SCH (08:08)
[2017-12-29] MEDS: predniSONE 10 MG TABLET PO SCH (08:08)
[2017-12-29] MEDS: Doxycycline 100 MG CAPSULE PO SCH (08:08)
[2017-12-29 08:42] VITALS: BP 123/67
--- NOTE | 2017-12-29 12:47 | Internal Med History&Physical ---
Date of Encounter: 12/21/17 Time of Encounter: 12:48 Assessment and Plan (1) Status post total hip replacement, right Status: Acute Patient appears relaxed and states that his pain has been well managed with current medications. Surgical incision is intact with a moderate amount of serous type drainage received. We will continue with twice a day dressing changes until drainage has reduced. Patient to be evaluated by physical therapy with recommendations pending. Patient states that he has been out of bed and bear weight without any difficulty. (2) CHF (congestive heart failure) Status: Chronic No acute issues. Lungs are clear throughout. Patient denies any chest discomforts or palpitations. Noted dependent edema to the hips and lower extremities. We will continue with HEMANT hose to lower legs and DVT prophylaxis. We will continue with current medications Qualifiers: Heart failure type: diastolic Heart failure chronicity: chronic Qualified Code(s): I50.32 - Chronic diastolic (congestive) heart failure (3) CKD (chronic kidney disease), stage III Status: Chronic No acute issues. Last creatinine was 1.1. We will continue with current medications and follow serial labs. (4) Diabetes mellitus Status: Chronic No acute issues. We will continue with fingersticks with sliding scale coverage and evaluate these were just current medication regimen. 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 Patient denies any discomforts to his bilateral feet were he states his gout flareups usually occur. Last uric acid was 7.7 on 12/15. Qualifiers: Gout site: toe Gout etiology: unspecified cause Chronicity: unspecified Laterality: right Qualified Code(s): M10.9 - Gout, unspecified (6) Atrial fibrillation Status: Chronic No acute issues. Patient's heart rate remains irregular with controlled rate less than 100. We will continue with current medications Qualifiers: Atrial fibrillation type: chronic Qualified Code(s): I48.2 - Chronic atrial fibrillation Internal Medicine - H&P: HPI Chief complaint: right hip replacement Admitted From: Intrahospital Transfer Plans for Post Hospital Care: Home History of present illness: Mr. Pendleton is a 62 year old male, who had a total hip replacement on the right after experiencing a fall at home resulting in a right femoral fracture. Patient with history of congestive heart failure, A. fib status post ablation and status post pacemaker currently on Xarelto, CKD3, diabetes, gout, hypertension, depression and BPH Patient's recovery postoperatively was complicated with an episode of elevated fever and leukocytosis. He was evaluated by infectious disease with no obvious action source found. It was thought his leukocytosis was secondary to a flareup of gout which was treated with cortical steroids. Patient did have a drop in hemoglobin and received 2 units of packed RBCs postoperatively. Patient also had increased dependent edema to his hips, which has resulted in a serous type drainage from his surgical wound, requiring twice a day dressing changes at time of discharge. Patient states that he has been up out of bed and feels that he is now progressing well. Right hip surgical wound appears intact with no erythema or ecchymosis noted. Noted moderate nonpitting edema to bilateral hips. Bilateral lower legs currently have Shelton wraps in place. Patient denies any other discomforts. Denies any shortness of breath, productive cough or palpitations. Patient states that his pain has been well-controlled with current medication regimen. Denies any fever or chills. Past Med Surg Social Fam HX - Past Medical History Medical history: atrial fibrillation, CHF, coronary artery disease, diabetes, hypertension Additional medical history: Gout, Pacemaker Psychiatric history: depression - Past Surgical History Surgical History: cataract, pacemaker/AICD, other Additional surgical history: R KNEE SCOPE, Cardiac ablation, Multiple heart caths - Social History Smoking Status: Never smoker Smokeless Tobacco Status: No Alcohol use: none Drug use: none - Family History Father Living Status: Hx Family Cardiac Disorders: Yes Hx Family Cancer: Yes Hx Family Endocrine Disorder: Yes Sister Hx Family Cardiac Disorders: Yes Mother Living Status: Hx Family Cardiac Disorders: Yes (stroke) Internal Medicine - H&P: Meds Sertraline [Zoloft] 100 mg PO DAILY 04/02/16 [History] Cinnamon Bark [Cinnamon] 1,000 mg PO BID 09/10/17 [History] Melatonin 10 mg PO HS 09/10/17 [History] Rivaroxaban [Xarelto] 20 mg PO DAILY 09/10/17 [History] Tamsulosin [Flomax] 0.4 mg PO DAILY 09/10/17 [History] Polyethylene Glycol 3350 [MiraLAX] 17 gm PO DAILY 12/09/17 [History] SitaGLIPtin [Januvia] 100 mg PO DAILY 12/09/17 [History] Aspirin [Adult Aspirin Regimen] 81 mg PO DAILY 12/10/17 [History] C/Sourcherry/Celery/Grape Seed [Tart Cordova Capsule] 1 cap PO DAILY 12/10/17 [ History] Insulin ASPART [Novolog Flexpen] 2 unit SQ TIDWM 12/10/17 [History] Insulin Glargine,Hum.rec.anlog [Toujeo Solostar] 15 units SQ HS 12/10/17 [ History] Multivitamin [One Daily Essential] 1 tab PO DAILY 12/10/17 [History] Omeprazole/Sodium Bicarbonate [Zegerid 20 mg Capsule] 1 cap PO Q48H PRN [History] Potassium Chloride [Klor-Con 10] 10 meq PO BID 12/10/17 [History] Doxycycline Hyclate 100 mg PO BID 10 Days #20 tablet 12/16/17 [Rx] Cyclobenzaprine [Flexeril] 5 mg PO TID PRN tablet 12/21/17 [Rx] Furosemide [Lasix] 40 mg PO BID #60 tablet 12/21/17 [Rx] Metoprolol XL (24 HR) Succ [Toprol Xl] 12.5 mg PO DAILY #0 tab.er.24h 12/21/17 [ Rx] predniSONE [PredniSONE] 10 mg PO TAPER #12 tablet 12/21/17 [Rx] 3 Allergy/AdvReac Type Severity Reaction Status Date / Time tetanus toxoid, adsorbed Allergy Hives Verified 12/10/17 10:11 NSAIDS (Non-Steroidal AdvReac See Verified 12/10/17 10:38 Anti-Inflamma Comments All Systems PM: A 10-system review of systems was performed and is negative for pertinent findings except as documented above in the HPI. - Constitutional Constitutional: as per HPI, no chills, no fever(s), no night sweats - EENT Eyes: as per HPI, no change in vision, no discharge, no pain, no photophobia Ears: no ear discharge, no ear pain, no tinnitus Nose, mouth and throat: no dysphagia, no nasal discharge, no neck pain, no sore throat - Cardiovascular Cardiovascular ROS IM: as per HPI, no chest pain, no diaphoresis, no dyspnea, no lightheadedness, no palpitations, no syncope - Respiratory Respiratory: as per HPI, no cough, no dyspnea, no wheezing, no excessive phlegm production - Gastrointestinal Gastrointestinal: no abdominal pain, no diarrhea, no hematemesis, no hematochezia, no melena, no nausea, no vomiting - Musculoskeletal Musculoskeletal ROS IM: as per HPI, joint swelling, no numbness, no tingling - Integumentary Integumentary IM: no rash, no unusual bruising - Neurological Neurological ROS: no confusion, no convulsions, no focal weakness, no numbness, no tingling, no tremor(s) - Hematologic/Lymphatic Hematologic/Lymphatic: no easy bruising - Constitutional Vitals: Temp Pulse Resp BP Pulse Ox 98.5 F 66 16 123/67 99 12/29/17 08:41 12/29/17 08:41 12/28/17 19:20 12/29/17 08:41 12/29/17 08:41 General appearance: Present: cooperative, A&O X 3, pleasant, no acute distress, answers questions appropriately - Head Head exam: Present: atraumatic, normocephalic - Eye Eye exam: Present: PERRL, conjuntiva pink, sclera anicteric Pupils: Present: PERRL - Neck Neck exam general surgery: Present: supple, trachea midline. Absent: lymphadenopathy - Respiratory Respiratory exam: Present: CTAB. Absent: accessory muscle use, rales, rhonchi, wheezes - Cardiovascular Cardiovascular exam: Present: RRR, +S1, +S2. Absent: diastolic murmur, gallop, rubs, systolic murmur - GI/Abdominal GI/Abdominal exam: Present: normal bowel sounds, soft, no peritoneal signs. Absent: distended, tenderness - Extremities Exam Extremities exam: Present: warm, radial pulses palpable and symmetrical. Absent : calf tenderness, cyanotic, pedal edema Additional comments: Right hip surgical incision appears intact with moderate amount of serous type drainage received 2 dressing. Moderate amount of swelling noted to right hip and right leg. No ecchymosis. No erythema - Neurological Exam Neurological exam: Present: CN II-XII intact, oriented X3, no focal deficits. Absent: pronater drift, facial droop, speech deficit - Skin Skin exam: Present: dry, intact Internal Med - H&P Results - Labs CBC & Chem 7: 12/26/17 06:35 12/28/17 06:53 - VTE Documentation of Mechanical Device: Graduated compression elastic hosiery
--- NOTE | 2017-12-29 12:52 | Discharge Summary ---
Date of Encounter: 12/29/17 Time of Encounter: 12:50 - Discharge Diagnosis (1) Status post total hip replacement, right Priority: Primary Status: Acute Comments: Right hip surgical incision appears healthy and intact, but continues to require dressings due to moderate amount of serous type drainage been received. Patient being referred to outpatient wound care for further evaluation and management. Right hip and leg remain swollen. Patient progressed well with physical therapy. We will continue with physical therapy as an outpatient and continue with daily dressing changes at home. Patient to follow-up with orthopedic surgeon and PCP (2) CHF (congestive heart failure) Priority: Secondary Status: Chronic Comments: No acute issues during hospitalization. Patient currently denies any chest discomforts, palpitations. We will continue with current home medications. Patient to follow-up with cardiology and PCP Qualifiers: Heart failure type: diastolic Heart failure chronicity: chronic Qualified Code(s): I50.32 - Chronic diastolic (congestive) heart failure (3) CKD (chronic kidney disease), stage III Priority: Secondary Status: Chronic Comments: No acute issues during hospitalization. Patient to continue with current medications at home. (4) Diabetes mellitus Priority: Secondary Status: Chronic Comments: Glucose is well controlled during hospitalization. Patient to continue with home medications. Follow-up with PCP for further management Qualifiers: Diabetes mellitus type: type 2 Diabetes mellitus oysterman insulin use: with chcf use Diabetes mellitus complication status: with kidney complications Diabetes mellitus complication detail: with chronic kidney disease Chronic kidney disease stage: stage 3 (moderate) Qualified Code(s): E11.22 - Type 2 diabetes mellitus with diabetic chronic kidney disease; N18.3 - Chronic kidney disease, stage 3 (moderate); Z79.4 - manager intermediate (current) use of insulin (5) Gout Priority: Secondary Status: Chronic Comments: Patient did have gout flareup postoperatively. Patient will be sent home on daily dose of colchicine and probenecid Qualifiers: Gout site: toe Gout etiology: unspecified cause Chronicity: unspecified Laterality: right Qualified Code(s): M10.9 - Gout, unspecified (6) Atrial fibrillation Priority: Secondary Status: Chronic Comments: No acute issues during hospitalization. Heart rate has remained at a controlled rate less than 100. Patient to continue with all medications and follow-up with cardiology Qualifiers: Atrial fibrillation type: chronic Qualified Code(s): I48.2 - Chronic atrial fibrillation Hospital course: Mr. Pendleton is a 62 year old male, who had a total hip replacement on the right after experiencing a fall at home resulting in a right femoral fracture. Patient with history of congestive heart failure, A. fib status post ablation and status post pacemaker currently on Xarelto, CKD3, diabetes, gout, hypertension, depression and BPH Patient's recovery postoperatively was complicated with an episode of elevated fever and leukocytosis. He was evaluated by infectious disease with no obvious action source found. It was thought his leukocytosis was secondary to a flareup of gout which was treated with cortical steroids. Patient did have a drop in hemoglobin and received 2 units of packed RBCs postoperatively. Patient also had increased dependent edema to his hips, which has resulted in a serous type drainage from his surgical wound, requiring twice a day dressing changes at time of discharge. Patient states that he has been up out of bed and feels that he is now progressing well. Right hip surgical wound appears intact with no erythema or ecchymosis noted. Noted moderate nonpitting edema to bilateral hips. Bilateral lower legs currently have Shelton wraps in place. Patient denies any other discomforts. Denies any shortness of breath, productive cough or palpitations. Patient states that his pain has been well-controlled with current medication regimen. Denies any fever or chills. Patient continued to progress well with physical therapy during stay in rehabilitation. Patient's surgical incision on right hip remains intact but continues to require daily dressing changes due to moderate amount of serous type drainage been received. No signs of infectious process. Patient will be discharged with continued dose of doxycycline. Patient continues to have moderate amount of edema to bilateral hips and right leg. Patient did have a gouty flareup postoperatively, but is asymptomatic at time of discharge. Patient being discharge with a prescription for probenecid and colchicine. No other issues were noted during hospital stay. Labs remained stable. Patient being discharged with outpatient therapy. Patient be referred to outpatient wound care for further management and evaluation of surgical wound. Patient also has a sacral decubitus that will be evaluated and managed per wound care Patient to continue with follow-up with orthopedic surgeon for management of wound. Patient to have follow-up with cardiology and PCP. Discharge discussed with: patient, family - Time Spent with Patient Total time spent providing and/or coordinating discharge services: Less than 30 minutes - Discharge Medications Home Medications: Sertraline [Zoloft] 100 mg PO DAILY 04/02/16 [History] Cinnamon Bark [Cinnamon] 1,000 mg PO BID 09/10/17 [History] Melatonin 10 mg PO HS 09/10/17 [History] Rivaroxaban [Xarelto] 20 mg PO DAILY 09/10/17 [History] Tamsulosin [Flomax] 0.4 mg PO DAILY 09/10/17 [History] Polyethylene Glycol 3350 [MiraLAX] 17 gm PO DAILY 12/09/17 [History] SitaGLIPtin [Januvia] 100 mg PO DAILY 12/09/17 [History] Aspirin [Adult Aspirin Regimen] 81 mg PO DAILY 12/10/17 [History] C/Sourcherry/Celery/Grape Seed [Tart Cordova Capsule] 1 cap PO DAILY 12/10/17 [ History] Insulin ASPART [Novolog Flexpen] 2 unit SQ TIDWM 12/10/17 [History] Insulin Glargine,Hum.rec.anlog [Toujeo Solostar] 15 units SQ HS 12/10/17 [ History] Multivitamin [One Daily Essential] 1 tab PO DAILY 12/10/17 [History] Omeprazole/Sodium Bicarbonate [Zegerid 20 mg Capsule] 1 cap PO Q48H PRN [History] Potassium Chloride [Klor-Con 10] 10 meq PO BID 12/10/17 [History] Doxycycline Hyclate 100 mg PO BID 10 Days #20 tablet 12/16/17 [Rx] Cyclobenzaprine [Flexeril] 5 mg PO TID PRN tablet 12/21/17 [Rx] Furosemide [Lasix] 40 mg PO BID #60 tablet 12/21/17 [Rx] Metoprolol XL (24 HR) Succ [Toprol Xl] 12.5 mg PO DAILY #0 tab.er.24h 12/21/17 [ Rx] predniSONE [PredniSONE] 10 mg PO TAPER #12 tablet 12/21/17 [Rx] Allergies/Adverse Reactions: 3 Allergy/AdvReac Type Severity Reaction Status Date / Time tetanus toxoid, adsorbed Allergy Hives Verified 12/10/17 10:11 NSAIDS (Non-Steroidal AdvReac See Verified 12/10/17 10:38 Anti-Inflamma Comments Date of admission: 12/21/17 14:07 Primary care physician: Sofya L Lower, ELECTRO MECHANICAL TECHNOLOGIST Consults: 12/21/17 18:42 Consult to Occupational Therapy [CONS] Routine Comment: Evaluate, develop and implement POC Reason for Consult: s/p right total hip Does patient have active BEDREST order?: No Is patient medically & hemodynamically stable?: Yes Consult to Physical Therapy [CONS] Routine Comment: Evaluate, develop and implement POC Reason for Consult: s/p right total hip Does patient have active BEDREST order?: No Is patient medically & hemodynamically stable?: Yes Consult to Recreational Therapy [CONS] Routine Comment: Evaluate, develop and implement POC Consult to Civil Drafter [CONS] Routine Reason for SW Consult: discharge planning Discharging clinician: Minh Montes - Constitutional Vitals: Temp Pulse Resp BP Pulse Ox 98.5 F 66 16 123/67 99 12/29/17 08:41 12/29/17 08:41 12/28/17 19:20 12/29/17 08:41 12/29/17 08:41 General appearance: Present: cooperative, A&O X 3, pleasant, no acute distress, answers questions appropriately - Head Head exam: Present: atraumatic, normocephalic - Eye Eye exam: Present: PERRL, conjuntiva pink, sclera anicteric Pupils: Present: PERRL - Neck Neck exam general surgery: Present: supple, trachea midline. Absent: lymphadenopathy - Respiratory Respiratory exam: Present: CTAB. Absent: accessory muscle use, rales, rhonchi, wheezes - Cardiovascular Cardiovascular exam: Present: RRR, +S1, +S2. Absent: diastolic murmur, gallop, rubs, systolic murmur - GI/Abdominal GI/Abdominal exam: Present: normal bowel sounds, soft, no peritoneal signs. Absent: distended, tenderness - Extremities Exam Extremities exam: Present: warm, radial pulses palpable and symmetrical. Absent : calf tenderness, cyanotic, pedal edema Additional comments: Patient continues to have moderate amount of edema to bilateral hips and right leg. Right hip surgical incision remains intact with a moderate amount of serous type drainage be received. - Neurological Exam Neurological exam: Present: CN II-XII intact, oriented X3, no focal deficits. Absent: pronater drift, facial droop, speech deficit - Skin Skin exam: Present: dry, intact - Patient Status Disposition: Home, Self-Care Condition: Good Functional capacity at discharge: uses cane/walker Overall status at discharge: patient is progressing back to baseline - Discharge Instructions Follow Up With: Rosanna Pfeiffer PAC [Physician Health Support Specialist] - 12/22/17 9:30 am (Following appt 12/30/2017 at 0900.) Mat Castillo MD [Partnered Physician] - 01/11/18 4:30 pm NONE,PCP [Non-Partnered Physician] - Sofya Hairston CNP [Primary Care Provider] - 01/05/18 11:30 am Additional Instructions: Discharge Instructions: Total Hip Replacement Please call [facility] ([phone]), your Primary Care Physician, or report to the Emergency Room if you have any of the following symptoms: Nausea, vomiting, fever greater that 101.5, swelling, chest pain, shortness of breath, increased pain/redness/drainage/odor for your incision site, numbness/ tingling, or any other concerning symptoms. ACTIVITY:Weight-bearing as tolerated for 8 weeks with hip dislocation precautions that physical therapy taught you. You may progress as tolerated under the guidance of your physical therapist. You do not need to sleep with a pillow between your legs. You can also seep on the operative side or on your stomach. MEDICATIONS: Upon discharge resume your home medications. Take all the medications as prescribed. Take a stool softener if taking narcotic pain medications. Stool softeners are only effective if you drink enough fluids. Drink 6-8 glass of water or fluids a day, unless this is not allowed for another health problem. Despite using stool softeners, if you haven't had a bowel movement in 3 days, please switch to a gentle laxative. Gentle laxatives are sold over the counter. You should have a bowel movement within 24 hours, if not call the office. You will be discharged from the hospital with a prescription for pain medication. You are encouraged to decrease the use of narcotic pain medication as tolerated. Should you require a refill, please call the office. [facility] prescribes narcotic pain medication for only 4-6 weeks after surgery. If you require pain medication beyond this time period, you may be referred to your Primary Care Physician or to the Pain Clinic for further evaluation. Plan ahead for refills on pain medication as many narcotics either need to be picked up at the office or mailed. It is best to call 48-72 hours in advance of needing a prescription refill so you don't run out of medication. To help control the post-operative pain, you may take NSAIDs (Aleve,Advil, Motrin, ibuprofen, naprosyn) or Tylenol as prescribed on the bottle in addition to the pain medication. ANTICOAGULATION (blood thinners): Continue your Aspirin, Lovenox or Coumadin as prescribed to help prevent a blood clot in the leg or in the lungs. As long as your incision remains dry and you tolerate the NSAIDs (Aleve, Advil, Motrin, Ibuprofen, Naprosyn), it is OK to use the NSAIDS while you are taking your anticoagulation medication. Should your incision start to drain, stop the NSAID and contact our office. Common symptoms of blood clot in the legs include: localized pain, swelling, calf tenderness, redness or discoloration of the skin. Blood clot in the lung symptoms include: shortness of breath, rapid pulse, sweating, and chest pain that worsens with deep breathing, coughing up blood, lightheadedness, feelings of anxiety. If you experience any of these symptoms notify your physician immediately, go to the emergency room, or if having trouble breathing, call 911. WOUND CARE: Leave the dressing on for 7 to 10days. You may change the dressing if it is saturated greater than 50%. Do not get the dressing wet at anytime. Wash your hands with antibacterial soap, rinse and dry prior to any wound care. If you have jhonny the visiting nurse or rehab facility can remove the stapes 10-14 days after surgery and place steri-strips across the wound. Leave the steri-strips in place until they fall off on their own. You may let water from the shower run on top of the steri-strips. If you do not have a visiting nurse or rehab facility, you will need to return to the office at 10-14 days for the jhonny to be removed. If you have itching or redness around the dressing call the office. FOLLOW-UP: Please follow up with your surgeon in the orthopedic clinic in 6 weeks from the day of surgery. If you have jhonny that need to be removed, you will need to come back to the office in 10-14 days from the day of surgery. - Diet and Activity Activity: ambulate only with your walker, as per physical therapy, resume usual activities as tolerated Diet: diabetic diet, low fat, low cholesterol, low salt diet - VTE Documentation of Mechanical Device: Graduated compression elastic hosiery
== END 2017-12-29 13:05 | disposition home or self-care (01) | DRG 560 ==
LOC: INPGRE 12-21 14:07